=== PATIENT | female | born 1985 ===

== ENCOUNTER 2017-11-26 12:50 | Inpatient (IN) | payer OTHER ==
[~2017-11-26] VITALS: Ht 154.9 cm; Wt 47.0 kg
[~2017-11-26 12:50] MED LIST changes: -DOCU100 PO; -OXYC5 PO; -SENN187 PO; -SPIR25 PO
[2017-11-26 19:12] LABS: Bilirubin, Direct 5.6 mg/dL (0.0-0.3)
[2017-11-26 19:21] LABS: International Normalized Ratio 1.49; Prothrombin Time Results 15.7 Sec (9.7-11.5)
[2017-11-26 20:17] LABS: Acetaminophen, Random <2.0 ug/mL (10.0-30.0)
[2017-11-26 21:05] LABS: Source, Urine Clean Catch
[2017-11-26 21:08] LABS: Appearance, Urine Hazy (Clear); Blood, Urine 1+ (Neg); Color, Urine Yellow (P-Yellow); Glucose Qualitative, Urine Neg (Neg); Ketones, Urine Neg (Neg); Leukocyte Esterase, Urine 2+ (Neg); Nitrite, Urine Pos (Neg); Protein, Urine Neg (Neg); Specific Gravity, Urine 1.005 (1.003-1.022); Urobilinogen, Urine 2+ (Normal)
[2017-11-26 21:18] LABS: Bilirubin, Urine 2+ (Neg)
[2017-11-26 21:22] LABS: Bacteria Many /hpf; Red Blood Cells, Urine 0-2 /hpf (0-2); Squamous Epithelial Cells Few /hpf (Few)
[2017-11-27 05:57] LABS: BASOPHILS ABSOLUTE AUTO 0.15 K/mm3 (0.00-0.23); BASOPHILS PERCENT AUTO 4 % (0-2); EOSINOPHILS ABSOLUTE AUTO 0.15 K/mm3 (0.00-0.68); EOSINOPHILS PERCENT AUTO 4 % (0-6); Hematocrit 31.6 % (33.0-51.0); Hemoglobin 10.8 g/dL (11.5-16.0); IMMATURE GRAN ABSOLUTE AUTO 0.01 K/mm3 (0.00-0.10); IMMATURE GRAN PERCENT AUTO 0 % (0-1); LYMPHOCYTES ABSOLUTE AUTO 1.36 K/mm3 (0.84-5.20); LYMPHOCYTES PERCENT AUTO 32 % (21-46); MONOCYTES PERCENT AUTO 16 % (4-13); Mean Corpuscular HGB 35.2 pg (26.0-34.0); Mean Corpuscular HGB Conc 34.2 g/dL (31.5-36.5); Mean Platelet Volume 11.1 fL (9.1-12.4); NEUTROPHILS ABSOLUTE AUTO 1.93 K/mm3 (1.96-9.15); NEUTROPHILS PERCENT AUTO 45 % (41-73); Platelet Count 108 K/mm3 (150-400); RDW Coefficient Variation 14.8 % (11.7-14.2); RDW Standard Deviation 55.9 fL (35.1-46.3); Red Blood Cell Count 3.07 M/mm3 (3.80-5.20)
[2017-11-27 06:01] LABS: Mean Corpuscular Volume 103 fL (80-100)
[2017-11-27 06:19] LABS: Alanine Aminotransfer (ALT/SGP 31 U/L (12-78); Albumin/Globulin Ratio 0.5 (0.8-1.8); Alk Phos 112 U/L (50-136); Anion Gap 6 mmol/L (6-16); Aspartate Aminotrans (AST/SGOT 120 U/L (12-37); Blood Urea Nitrogen 5 mg/dL (8-24); CO2, Blood 29 mmol/L (21-32); Chloride, Blood 101 mmol/L (98-108); Creatinine, Blood 0.45 mg/dL (0.40-1.00); Globulin, Blood 3.9 g/dL (2.2-4.0); Glomerular Filtration Rate >60 (60-); Glucose, Blood 81 mg/dL (70-99); Potassium, Blood 3.4 mmol/L (3.5-5.5); Sodium, Blood 136 mmol/L (136-145); Total Protein, Blood 5.9 g/dL (6.4-8.2)
[2017-11-27 06:27] LABS: Calcium, Blood 6.7 mg/dL (8.5-10.1)
[2017-11-28 07:23] LABS: Hepatitis C Antibody Non Reactive (NR)
[2017-11-29 05:38] LABS: Hematocrit 30.4 % (33.0-51.0); Hemoglobin 10.2 g/dL (11.5-16.0); Mean Corpuscular HGB 34.9 pg (26.0-34.0); Mean Corpuscular HGB Conc 33.6 g/dL (31.5-36.5); Mean Corpuscular Volume 104 fL (80-100); Mean Platelet Volume 11.7 fL (9.1-12.4); Platelet Count 126 K/mm3 (150-400); RDW Coefficient Variation 14.6 % (11.7-14.2); RDW Standard Deviation 55.8 fL (35.1-46.3); Red Blood Cell Count 2.92 M/mm3 (3.80-5.20); White Blood Cell Count 4.17 K/mm3 (4.00-11.30)
[2017-11-29 05:53] LABS: International Normalized Ratio 1.56; Prothrombin Time Results 16.4 Sec (9.7-11.5)
[2017-11-29 06:07] LABS: Alanine Aminotransfer (ALT/SGP 26 U/L (12-78); Albumin, Blood 1.9 g/dL (3.4-5.0); Albumin/Globulin Ratio 0.5 (0.8-1.8); Alk Phos 104 U/L (50-136); Anion Gap 7 mmol/L (6-16); Aspartate Aminotrans (AST/SGOT 91 U/L (12-37); Bilirubin, Total 5.4 mg/dL (0.1-1.0); Blood Urea Nitrogen 3 mg/dL (8-24); Bun/Creatinine Ratio 6.6 (12.0-20.0); CO2, Blood 28 mmol/L (21-32); Calcium, Blood 7.1 mg/dL (8.5-10.1); Chloride, Blood 99 mmol/L (98-108); Creatinine, Blood 0.46 mg/dL (0.40-1.00); Globulin, Blood 3.7 g/dL (2.2-4.0); Glomerular Filtration Rate >60 (60-); Glucose, Blood 89 mg/dL (70-99); Potassium, Blood 3.5 mmol/L (3.5-5.5); Sodium, Blood 134 mmol/L (136-145); Total Protein, Blood 5.6 g/dL (6.4-8.2)
[2017-11-29 12:35] LABS: Automated BF WBC Count 0.066 K/mm3 (0-999); Body Fluid WBC Count 66 /mm3 (0-999)
[2017-11-29 12:48] LABS: Albumin, Body Fluid 0.3 g/dL; Lactate Dehydrogenase, Body Fl 25 U/L; Protein, Body Fluid 0.6 g/dL
[2017-11-29 12:55] LABS: RBC Count, Body Fluid 50 /mm3 (0-0)
[2017-11-29 13:01] LABS: Appearance, Body Fluid Clear (Clear); Color, Body Fluid Yellow (None-Yellow); Total Cell Count, Body Fluid 100
[2017-12-01] MEDS ORDERED: DOCU100 PO (09:26)
[2017-12-01] MEDS ORDERED: OXYC5 PO (09:26)
[2017-12-01] MEDS ORDERED: SENN187 PO (09:27)
[2017-12-01] MEDS ORDERED: SPIR25 PO (09:27)
== END 2017-12-01 10:11 | disposition home or self-care (01) | DRG 433 ==
LOC: ER 12:50 → SURS 20:17 → ERHOLD 20:17 → SURS 22:30
PROVIDERS: Emergency Medicine; Family Medicine; Internal Medicine
PROC: HZ2ZZZZ Detoxification Services for Substance Abuse Treatment (ICD-10-PCS; 2017-11-26)
PROC: 0W9G3ZX Drainage of Peritoneal Cavity, Percutaneous Approach, Diagnostic (ICD-10-PCS; principal; 2017-11-29)
DX: K70.11 Alcoholic hepatitis with ascites (principal); E87.1 Hypo-osmolality and hyponatremia; D69.6 Thrombocytopenia, unspecified; K76.6 Portal hypertension; E88.09 Other disorders of plasma-protein metabolism, not elsewhere classified; N39.0 Urinary tract infection, site not specified; F10.239 Alcohol dependence with withdrawal, unspecified; E87.6 Hypokalemia; K76.0 Fatty (change of) liver, not elsewhere classified; D24.1 Benign neoplasm of right breast; D64.89 Other specified anemias; K80.20 Calculus of gallbladder without cholecystitis without obstruction; Z87.891 Personal history of nicotine dependence; K59.09 Other constipation
CPT/HCPCS: 36415; 49083; 74177; 80053; 81001; 82042; 82248; 82607; 82728; 82746; 83615; 83735; 84157; 84443; 85025; 85027; 85610; 85730; 86704; 86705; 86706; 86708; 86709; 86803; 87070; 87077; 87086; 87186; 87205; 87340; 88108; 89051; 96361; 96374; 96375; 96376; 99285; G0480; J1644; J1956; J2060; J2405; J3010; J3480; J7030; Q2038; Q9967

== ENCOUNTER → 2017-11-26 | Outpatient (CLI) | payer OTHER ==
[~2017-11-26] MED LIST: DOCU100 PO; IBUP800 PO; OXYACE5T PO; OXYC5 PO; SENN187 PO; SPIR25 PO
[2017-11-26 11:32] LABS: BASOPHILS ABSOLUTE AUTO 0.12 K/mm3 (0.00-0.23); BASOPHILS PERCENT AUTO 2 % (0-2); EOSINOPHILS ABSOLUTE AUTO 0.08 K/mm3 (0.00-0.68); EOSINOPHILS PERCENT AUTO 1 % (0-6); Hematocrit 35.4 % (33.0-51.0); Hemoglobin 12.4 g/dL (11.5-16.0); IMMATURE GRAN ABSOLUTE AUTO 0.01 K/mm3 (0.00-0.10); IMMATURE GRAN PERCENT AUTO 0 % (0-1); LYMPHOCYTES ABSOLUTE AUTO 1.33 K/mm3 (0.84-5.20); LYMPHOCYTES PERCENT AUTO 24 % (21-46); MONOCYTES ABSOLUTE AUTO 1.18 K/mm3 (0.16-1.47); MONOCYTES PERCENT AUTO 21 % (4-13); Mean Corpuscular HGB 34.7 pg (26.0-34.0); Mean Corpuscular Volume 99 fL (80-100); Mean Platelet Volume 11.3 fL (9.1-12.4); NEUTROPHILS ABSOLUTE AUTO 2.93 K/mm3 (1.96-9.15); NEUTROPHILS PERCENT AUTO 52 % (41-73); Platelet Count 139 K/mm3 (150-400); RDW Coefficient Variation 14.5 % (11.7-14.2); RDW Standard Deviation 52.2 fL (35.1-46.3); Red Blood Cell Count 3.57 M/mm3 (3.80-5.20); White Blood Cell Count 5.65 K/mm3 (4.00-11.30)
[2017-11-26 12:29] LABS: Alanine Aminotransfer (ALT/SGP 44 U/L (12-78); Albumin, Blood 2.6 g/dL (3.4-5.0); Albumin/Globulin Ratio 0.6 (0.8-1.8); Alk Phos 153 U/L (50-136); Anion Gap 11 mmol/L (6-16); Aspartate Aminotrans (AST/SGOT 183 U/L (12-37); Bilirubin, Total 7.4 mg/dL (0.1-1.0); Blood Urea Nitrogen 5 mg/dL (8-24); Bun/Creatinine Ratio 9.2 (12.0-20.0); CO2, Blood 30 mmol/L (21-32); Calcium, Blood 7.8 mg/dL (8.5-10.1); Chloride, Blood 92 mmol/L (98-108); Creatinine, Blood 0.54 mg/dL (0.40-1.00); Globulin, Blood 4.7 g/dL (2.2-4.0); Glomerular Filtration Rate >60 (60-); Glucose, Blood 96 mg/dL (70-99); Potassium, Blood 2.6 mmol/L (3.5-5.5); Sodium, Blood 133 mmol/L (136-145); Total Protein, Blood 7.3 g/dL (6.4-8.2)
[2017-11-27 08:02] LABS: HCV Non Reactive (NR)
== END ==
LOC: LAB SHORT 11:19
PROVIDERS: Physician Assistant
DX: R10.0 Acute abdomen (principal)
CPT/HCPCS: 80053; 80074; 85025; 87077; 87086; 87186

== ENCOUNTER → 2019-05-05 | Outpatient (CLI) | payer OTHER ==
[~2019-05-05] MED LIST changes: +DOCU100 PO; +OXYC5 PO; +SENN187 PO; +SPIR25 PO
== END | disposition home or self-care (01) ==
LOC: LAB SHORT 15:01 → LAB EV 15:01
DX: N89.8 Other specified noninflammatory disorders of vagina (principal)
CPT/HCPCS: 87070; 87205